=== PATIENT | female | born 1960 | race Caucasian/White ===

== ENCOUNTER → 2016-06-30 | Outpatient (CLI) | payer OTHER, BC ==
[~2016-06-30] MED LIST: ESTRADIOL PO; VITAMIN B12 PO
--- NOTE | 2016-06-30 16:34 | DIAGNOSTIC IMAGING REPORT ---
ADDENDUM Following correlation with the surgical history, all findings appear to be on a simple postoperative basis. There is a trace amount of soft tissue edematous change considered entirely unremarkable given the patient's postoperative state. No significant acute finding is felt to be present. Postoperative changes are all unremarkable given the procedure performed. The biceps tendon including repositioning is unremarkable on a postoperative basis. There is again no evidence for rotator cuff tear abnormality Electronically signed by: Juan Bolanos M.D. 07/08/2016 2:41 PM Dictated Date/Time: 07/08/2016 2:39 PM ORIGINAL REPORT RIGHT SHOULDER MRI HISTORY: BICEP TENDONITIS, right SHOULDER PAIN Right TECHNIQUE: Multiplanar multisequence MRI of the right shoulder was performed without contrast. COMPARISON STUDY: Right shoulder 04/30/2015. FINDINGS: AC joint: Trace fluid and mild subchondral edema at the AC joint. This favors mild degenerative change. Rotator cuff: The subscapularis, teres minor, and infraspinatus tendons are intact. There is mild increased T2 signal within the distal supraspinatus tendon consistent with a mild tendinopathy/partial bursal surface tear. No significant fluid within the subacromial/subdeltoid bursa. No retraction or fatty atrophy of the muscles. Labrum: Intact Biceps tendon: The long head of the biceps tendon is not located within the bicipital groove and is likely torn and completely retracted. The short head of the biceps tendon is intact. Bones: No fracture dislocation. There is a single screw the proximal humeral shaft. Cartilage: Mild cartilage thinning within the central aspect of the glenoid. Miscellaneous: No significant joint effusion. Susceptibility artifact surrounding the shoulder suggestive of old postoperative change. IMPRESSION: 1. The long head of the biceps tendon is not identified within the bicipital groove and is likely torn and completely retracted. 2. Increased signal within the distal supraspinatus tendon likely represents a combination of tendinopathy and a small bursal surface tear. No evidence for full-thickness rotator cuff tear. Electronically signed by: Carlos Patino M.D. 06/30/2016 4:32 PM Dictated Date/Time: 06/30/2016 4:23 PM
== END | disposition home or self-care (01) ==
LOC: C.MRIBC 15:19
PROVIDERS: ATTEND Orthopaedic Surgery
DX: M79.621 Pain in right upper arm (principal); M75.21 Bicipital tendinitis, right shoulder